=== PATIENT | female | born 1930 | race Caucasian/White ===

== ENCOUNTER → 2016-07-18 | Outpatient (CLI) | payer OTHER, MEDICARE ==
[~2016-07-18] VITALS: Ht 165.1 cm; Wt 86.5 kg
[~2016-07-18] MED LIST: ADULT LOW DOSE81 MG PO; AMITRIPTYLINE H25 M2 PO; AMITRIPTYLINE H25 M4 PO; AMITRIPTYLINE H50 M2 PO; AMITRIPTYLINE H50 M3 PO; CHLORTHALIDONE25 MG PO; DAYPRO600 MG PO; EXCEDRIN CAPLE1 EACH PO; HYDROCODON-ACE1 EAC5 PO; HYDROCODON-ACE1 EACH PO; LASIX 20 MG TAB20 MG PO; LASIX 40 MG TAB40 M2 PO; LEVOTHYROXIN0.112 M1 PO; LISINOPRIL-HCT1 EACH PO; LISINOPRIL10 MG PO; MECLIZINE 25 MG25 M1 PO; METHADONE HCL 110 M1 PO; METHADONE HCL5 MG PO; NEURONTIN600 MG PO; NORTRIPTYLINE H25 M3 PO; OMEPRAZOLE 20 M20 M1 PO; PRINZIDE 20-251 EACH PO; SYNTHROID25 MCG PO; SYNTHROID75 MCG PO; ZOFRAN PO
--- NOTE | ~2016-07-18 | HPC ---
[facility] [place] [address] PAIN MANAGEMENT CONSULTATION Name: VALENTIN MURRAY Room #: REG [facility].#: [id number] Admission: 07/18/16 Attend Phys: Chet Benavides MD Discharge: Date of : 30 Report #: [id number] THIS REPORT FOR: //name// CC: Chet Jeff MD DATE OF SERVICE: 07/18/2016 Followup visit for chronic intractable facial pain and management of high-risk medication. The patient returns to the pain clinic today and she has had an episode of congestive heart failure. This was severe enough to keep her hospitalized at [facility] for several days while she was aggressively diuresed. She is still retaining a fair amount of fluid. She is back in the facility and is hopeful that she can keep her fluid management under control. MEDICATIONS: Chlorthalidone, lisinopril, levothyroxine, Lasix, nortriptyline, methadone 10 mg t.i.d., gabapentin 600 mg at bedtime, aspirin and omeprazole. ALLERGIES: IODINE. PHYSICAL EXAMINATION: GENERAL: She is a pleasant 86-year-old, alert and oriented, without signs of overmedication. VITAL SIGNS: Her blood pressure is 155/74, heart rate 95 and respirations 16. BMI is 31.8. HEART: She has rapidly heart rate with a slight murmur appreciated. EXTREMITIES: Examination of the feet reveals bilateral lower extremity 2+ to 3+ edema, worse on the left. IMPRESSION: 1. 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 2. Recent congestive heart failure episodes. RECOMMENDATIONS: 1. Continue methadone at current doses. 2. Reduce gabapentin at 300 mg daily due to its ability at times to worsen edema. 3. Follow up in the pain clinic in 3 months. By: [id number] Chet Benavides MD /nt
[2016-07-18 13:50] VITALS: BP 155/74
== END ==
LOC: PAIN 06:50
DX: G89.29 Other chronic pain (principal); I50.9 Heart failure, unspecified; I10 Essential (primary) hypertension

== ENCOUNTER → 2016-10-27 | Outpatient (CLI) | payer OTHER, MEDICARE ==
[~2016-10-27] VITALS: Ht 167.6 cm; Wt 86.1 kg
[~2016-10-27] MED LIST changes: +TYLENOL PM EX-1 EACH PO
[2016-10-27 14:35] VITALS: BP 145/70
== END | disposition home or self-care (01) ==
LOC: PAIN 09-15 07:49
DX: G50.1 Atypical facial pain (principal); I50.9 Heart failure, unspecified

== ENCOUNTER → 2017-06-14 | Outpatient (CLI) | payer OTHER, MEDICARE ==
[~2017-06-14] VITALS: Ht 167.6 cm; Wt 82.4 kg
[~2017-06-14] MED LIST changes: +ASPIRIN EC81 M1 PO; +CARAFATE 1 GM TA1 G1 PO; +IRON325 PO; +NORTRIPTYLINE H10 M1 PO; +PROTONIX40 M1 PO; +SENNA8.6 MG PO; +UNICOMPLEX M TA1 TA1 PO
--- NOTE | ~2017-06-14 | HPC ---
[facility] [address] [place] [address] PAIN MANAGEMENT CONSULTATION Name: VALENTIN MURRAY Azul Room #: REG [facility]#: [id number] Admission: 06/14/17 Attend Phys: Chet Benavides MD Discharge: Date of : 30 Report #: [id number] THIS REPORT FOR: //name// CC: Chet Jeff MD DATE OF SERVICE: 06/14/2017 Followup visit for management of chronic osteoarthritic pain and atypical facial pain with trigeminal neuralgia. The patient returns to pain clinic today for renewal of her methadone. She has been using a combination of methadone 10 mg 3 times daily and nortriptyline for 13 years. She was initiated on methadone with her first prescription in 2003 after a failure of Neurontin. She has been grateful for it ever since. It has successfully managed her pain with very few side effects. She has had no misuse or abuse issues. She has had no situations where we have been concerned of overdose. Side effects have been well managed. Today, she scores her pain as a 4-5/10. She has ongoing pain in the left side of her face, in her ear radiating to her gum and some pain into her right leg with radiculopathy. Medications reviewed include chlorthalidone, lisinopril, levothyroxine, methadone 10 mg t.i.d., nortriptyline 25 at bedtime and aspirin. She understands all her medications, would like to consider tapering her nortriptyline. On PQRS review, she has osteoarthritis of the knees bilaterally, right worse than left. She has maintained her weight at 29.3 BMI. Blood pressure is 134/58, heart rate is 100 with respirations 16 and O2 sat of 98. Her pain intensity is 4-5/10. She needs some help standing and walking and uses a walker and would be considered for that basis a fall risk. She is on no blood thinners. She has been treated for hypertension by her primary care physician. She is on an opioid therapy agreement, which was initially signed in the mid 1999s. She is now on her 13 year of methadone use. She is at low risk for misuse, abuse or addiction. Functional assessment tool shows that her functional interference is 50/70, which is a fairly significant level. She does her best to remain active and is growing old in the facility. IMPRESSION: 1. Osteoarthritis, right knee. 2. Management of high risk medications under terms of an opioid agreement. 3. Atypical facial pain and trigeminal neuralgia. [facility] [address] [place] [address] PAIN MANAGEMENT CONSULTATION Name: VALENTIN MURRAY Room #: REG [facility]#: [id number] Admission: 06/14/17 Attend Phys: Chet Benavides MD Discharge: Date of : 30 Report #: [id number] Under terms of our agreement, I have renewed her methadone. She will manage it carefully. I plan to see her back in the pain clinic in 3 months. <ELECTRONICALLY SIGNED> By: Chet Benavides MD 07/24/17 1408 [id number] Chet Benavides MD /nt
[2017-06-14 13:34] VITALS: BP 134/58
== END ==
LOC: PAIN 05-15 07:03
DX: M17.11 Unilateral primary osteoarthritis, right knee (principal); F11.90 Opioid use, unspecified, uncomplicated; G50.0 Trigeminal neuralgia

== ENCOUNTER → 2017-10-11 | Outpatient (CLI) | payer OTHER, MEDICARE ==
[~2017-10-11] VITALS: Ht 167.6 cm; Wt 80.7 kg
--- NOTE | ~2017-10-11 | HPC ---
[facility] [place] [address] PAIN MANAGEMENT CONSULTATION Name: VALENTIN MURRAY [id number] Admission: 10/11/17 Attend Phys: Markos Boyce DO Discharge: Date of : 30 Report #: [id number] THIS REPORT FOR: //name// CC: Markos Jeff MD DATE OF SERVICE: 10/11/2017 CHIEF COMPLAINT: Chronic osteoarthritis, atypical facial pain secondary to trigeminal neuralgia. HISTORY OF PRESENT ILLNESS: As you know, the patient is a very pleasant 87-year-old female who returns today in followup visit requesting refill of her methadone therapy, which she takes 10 mg 3 times a day. She also takes nortriptyline 25 mg dose p.o. at bedtime for neuropathic symptoms. Despite the medications, she continues to experience numbness, aching and shooting, though she is able to place pain score today, no greater than 5/10, which is tolerable for her. She states that bending hands, walking as well as certain temperatures can affect pain. She states pain medications tend to improve symptoms. She has returned requesting refill on medications. ALLERGIES: IODINE, TOPICAL AGENTS. CURRENT MEDICATIONS: Multivitamin, sucralfate, Senokot, pantoprazole, ferrous sulfate, nortriptyline, methadone, aspirin, acetaminophen, chlorthalidone, lisinopril, levothyroxine. SOCIAL HISTORY: The patient denies tobacco, alcohol, IV or illicit drug use. She is retired. She lives in [facility] within the [facility] living [facility] area. She is unaccompanied today. IMAGING: No new imaging available. PQRS: The patient has osteoarthritis of the knees bilaterally and hands. She does not have rheumatoid arthritis. She places pain intensity 5/10. She is not a fall risk, though she does use devices for ambulation including roller walkers. She is not on blood thinners. She is treated for hypertension. She has been on opioids for a much greater than 6 weeks. She is under opioid contract with Dr. Chet Benavides to receive these medications. She is at low risk for opioid abuse. Functional assessment tool indicates pain impact score of 50/70. PHYSICAL EXAMINATION: VITAL SIGNS: Blood pressure 136/56, pulse is 90, respiratory rate 18, [facility] [address] [place] [address] PAIN MANAGEMENT CONSULTATION Name: VALENTIN MURRAY Azul Room #: REG [facility].#: [id number] Admission: 10/11/17 Attend Phys: Markos Boyce DO Discharge: Date of : 30 Report #: [id number] unlabored. The patient is 96% on room air. Height 5 feet 6 inches tall, weight 177.8 pounds, BMI calculated 28.7. GENERAL: Well-developed, well-nourished, well-hydrated 87-year-old female appearing stated age, placing current pain score 5/10. HEENT: Normocephalic, atraumatic. Pupils equal, round, reactive to light. Speech is fluent. MUSCULOSKELETAL: The patient does have some palpatory tenderness over the trigeminal distribution on the right. 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 ASSESSMENT: 1. Bilateral osteoarthritis of the hands. 2. Trigeminal neuralgia. 3. Osteoarthritis of the right knee. 4. Chronic intractable pain. 5. Management of high risk medications under terms of opioid agreement. PLAN: 1. The patient returns today in followup visit to continue medication therapy. Due to scheduling conflicts, the patient was placed on my services to provide refill of medications. The patient states she is doing very well with medication therapy and feels that it is beneficial. She wishes to continue the treatment option. She is taking methadone 3 times a day and has been consistently taking this medication for very long period of time. She denies side effects of somnolence, decrease in mental acuity, disorientation and confusion. She requests a refill on this medication. She is also requesting nortriptyline 25 mg dose 1 tab p.o. at bedtime with a 3-month prescription. 2. The patient was provided a prescription of methadone 10 mg dose 1 tab p.o. t.i.d. The patient was advised that the calculation based on CDC's current opioid equivalent calculated would indicate 240 morphine equivalents a day based on 30 mg dose with a conversion factor of 8, which is based on the CDC's conversion calculator. The patient was advised that 90 morphine equivalents would be the maximum typical for chronic pain, but she is tolerating the medication well. We will refill the medication today for #90 tablets with releases of today, 4 weeks from today, 8 weeks from today, 3 months' worth of medication. She can follow up with Dr. Benavides about adjustments in therapy if necessary. 3. The patient was provided a prescription of nortriptyline 25 mg dose 1 tab p.o. at bedtime. I have given the patient #90 tablets, which is a 3-month prescription. There were refills upon this prescription. 4. The patient returns to see Dr. Benavides in 3 months, adjustments in therapy [address] [address] PAIN MANAGEMENT CONSULTATION Name: VALENTIN MURRAY Room #: REG [facility]#: [id number] Admission: 10/11/17 Attend Phys: Markos Boyce DO Discharge: Date of : 30 Report #: [id number] may be necessary at that time. We will defer to Dr. Benavides for the followup visit. By: [id number] Markos Boyce DO /nt
[2017-10-11 10:47] VITALS: BP 136/56
[2017-10-11 10:49] VITALS: BP 136/56
== END ==
LOC: PAIN 07:09
DX: M17.11 Unilateral primary osteoarthritis, right knee (principal); M19.042 Primary osteoarthritis, left hand; M19.041 Primary osteoarthritis, right hand; G50.0 Trigeminal neuralgia; G89.4 Chronic pain syndrome; Z79.891 Long term (current) use of opiate analgesic

== ENCOUNTER → 2018-01-16 | Outpatient (CLI) | payer OTHER, MEDICARE ==
[~2018-01-16] VITALS: Ht 167.6 cm; Wt 78.9 kg
--- NOTE | ~2018-01-16 | HPC ---
[facility] [address] [address] PAIN MANAGEMENT CONSULTATION Name: VALENTIN MURRAY Azul Room #: REG AUGUST Deric#: [id number] Admission: 01/16/18 Attend Phys: Chet Benavides MD Discharge: Date of : 30 Report #: [id number] THIS REPORT FOR: //name// CC: Chet Jeff MD DATE OF SERVICE: 01/16/2018 REASON FOR CONSULTATION: Followup visit for chronic pain. HISTORY OF PRESENT ILLNESS: This is patient who is now 87-year-old and has been a longstanding patient of mine dating back well over 10 years that is here today for renewal of her methadone. She takes 10 mg three times a day. The CDS guideline calculates this at 90 morphine milligram equivalents. The new calculation for methadone has dropped from 4:1 to 3:1. She denies any significant side effects including constipation. She is doing well. She is able to function at a high level providing for all of her own self-care. 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 She has no cognitive issues. She is grateful for the pain relief that she gets from the medication and believes that the pain control that she has for her atypical facial pain from trigeminal neuralgia is joseph to remaining independent and active. PQRS review shows that she does also have some osteoarthritis. It involves knees and hands. She has a pain intensity of 5. She has not fallen and I would not consider her a fall risk. She takes no blood thinners. She is, however, treated for hypertension and we reviewed all medications. Our opioid agreement is established and we talked about the importance for her safeguarding these medications. She is at low risk for any sort of addiction or opioid abuse. Vital signs showed blood pressure 127/41, heart rate 92, respirations 16, O2 sat 97. She has no facial allodynia at this time. IMPRESSION: 1. Chronic intractable pain with osteoarthritis of the right knee, bilateral osteoarthritis of the hands. 2. Trigeminal neuralgia/atypical facial pain of neuralgic origin. 3. Management of high risk medications under terms of an opioid agreement. PLAN: Followup visit in 3 months. Medications renewed with 4 and 8-week release dates. By: [id number] Chet Benavides MD /nt
[2018-01-16 10:19] VITALS: BP 127/41
== END ==
LOC: PAIN 06:53
DX: G89.4 Chronic pain syndrome (principal); G50.0 Trigeminal neuralgia; Z79.899 Other long term (current) drug therapy

== ENCOUNTER → 2018-04-12 | Outpatient (CLI) | payer OTHER, MEDICARE ==
[~2018-04-12] VITALS: Ht 167.6 cm; Wt 78.1 kg
[2018-04-12 10:12] VITALS: BP 113/56
--- NOTE | 2018-04-12 10:24 | NUR ---
Pain Clinic Assessment: 1. History of Osteoarthritis: knee HANDS History of Rheumatoid Arthritis: Not Applicable 2. Height: 5 ft. 6 in. 167.6 cm. Weight: 172.2 lb. oz. 78.109 kg. Patient's BMI: 27.8 3. Vital Signs: BP: 113/56 Pulse: 86 Resp: 20 Temp: 02 Sat: 97 ECG Mon: 4. Pain Intensity: 7 5. Fall Risk: Dizziness: N Needs help standing or walking: Y Fallen in the last 3 months: N Fall risk comments: 6. Patient on Blood Thinner: None 7. History of Hypertension: Y 8. Opioid Therapy greater than 6 weeks: Y Opiate Contract Signed: 06/14/17 9. Risk Assessment Tool Provided: low risk 10. Functional Assessment Tool: 50/70 11. Recreational Drug Use: Never Drug Type: Tobacco Use: Never Smoker Tobacco Type: Amount or Packs/day: How Many Years: Alcohol Use: No Frequency: Quant:
--- NOTE | 2018-04-18 10:08 | HPC ---
[facility] [address] [place] [address] PAIN MANAGEMENT CONSULTATION Name: TREVORVALENTIN Azul Room #: REG [facility] Leos#: [id number] Admission: 04/12/18 Attend Phys: Gabriela Cloud Discharge: Date of : 30 Report #: [id number] THIS REPORT FOR: //name// CC: Gabriela Thornton Alcgui DATE OF SERVICE: 04/12/2018 CHIEF COMPLAINT: Chronic intractable pain with osteoarthritis and trigeminal neuralgia. HISTORY OF PRESENT ILLNESS: This is a very pleasant 87-year-old who returns to the Pain Clinic today for her medication management that is used to treat her trigeminal neuralgia of her face on the left side and her ongoing osteoarthritis. The patient does complain also of left foot pain today. She tells me she has a bone that has been growing into her instep, makes it very painful to walk, rating her pain today as 7/10. In part, it has increased due to this foot pain. She is contemplating having surgery because she is having such difficulty walking. They are worried about her heart because she does have congestive heart failure and other cardiac issues. So, she is going to go back and talk with doctor again regarding this because she cannot be very active. She denies any constipation. She uses Senokot-S on a daily basis. She does not have any daytime sleepiness. Her meds are very helpful in controlling her pain and would like a refill today. CURRENT ALLERGIES: IODINE. CURRENT LIST OF MEDICATIONS: Methadone 10 mg 3 times a day, multivitamin, Senokot daily, Carafate twice a day, Protonix 40 mg daily, iron 325 mg daily, nortriptyline 25 mg daily, 81 mg aspirin, extra strength Tylenol 1 tablet a day, chlorthalidone 25 mg daily, lisinopril 10 mg daily and Synthroid 112 mcg daily. PQRS: 1. The patient has a history of osteoarthritis in her knees and her hands. Denies rheumatoid arthritis. 2. Height is 5 feet 6 inches, weight is 172, BMI is 27.8. 3. Vital signs: Blood pressure 113/56, pulse is 86, respirations 20, oxygen sat is 97. 4. Pain score 7/10. 5. Fall risk. The patient denies dizziness. Does use a walker today and has not fallen in the last 3 months. 6. The patient denies blood thinners, but takes antihypertensive medications. 7. Opioid therapy is greater than 6 weeks. Therefore, no opioid signed contract is on the chart. 8. Risk assessment tool is low and her functional assessment is 50/70. 9. Recreational drug use, she does not use, does not [place] [address] PAIN MANAGEMENT CONSULTATION Name: VALENTIN MURRAY Room #: REG A[facility] Leos#: [id number] Admission: 04/12/18 Attend Phys: Gabriela Cloud Discharge: Date of : 30 Report #: [id number] alcohol. We have checked the prescription monitoring system. The patient is filling appropriately from Dr. Benavides. The patient tells me she safeguards her medications. We will check a urine screen on the next visit for this patient. PHYSICAL EXAMINATION: GENERAL: This is a well-developed, well hydrated, 87-year-old female that appears younger than her stated age. She is alert and orientated and her affect is appropriate. She lives at [facility], is an independent living. Her niece is here for the visit today in the waiting room. HEENT: Normocephalic, atraumatic. Extraocular eye muscles are intact. Mucous membranes are moist. Left face tenderness from ear to jaw. NECK: Without adenopathy or JVD. MUSCULOSKELETAL: The patient does have 2+ edema in her lower extremity, especially greater on the right than the left. Complains of foot pain, top of the foot, very tender to the touch of her left foot. Bilateral strength judged to be 4/5 in all major muscle groups in her lower extremities. IMPRESSION: 1. Chronic intractable pain with osteoarthritis of her right knee, bilateral osteoarthritis of her hands. 2. Trigeminal neuralgia, atypical facial pain of neuralgic origin. 3. Left foot pain related to atypical bone growth. 4. Management of high risk medications under terms of written opioid agreement. We reviewed the fact that opiate medications are being used to provide analgesia adequate to support activities of daily living, not attempting to achieve a specific pain score on the 0-10 Visual Analog Scale. The current opiate medications are providing sufficient analgesia to allow the patient to participate in activities of daily living. The patient is not exhibiting any aberrant behavior suggestive of drug diversion. The patient is not having any adverse reactions to medications. The patient is not suffering from daytime somnolence or mental acuity changes. The patient is managing opiate-induced constipation with appropriate [id number] agents and dietary considerations. The patient was counseled on concern for caution with operating a motor vehicle while using opiate medications. A physical exam was performed and the patient's functional status was evaluated. All patients with back pain were advised against the bed rest greater than 4 days and were advised to return to normal activities. Pain score assessment was noted and the treatment plan was reviewed with the patient. All current medications, both prescribed and OTC were reviewed and reconciled on the electronic medical record. Tobacco screening was accomplished and smoking cessation was advised when indicated. BMI was noted and diet/exercise modification was recommended for all patients following outside normal parameters. [facility] [address] [place] [address] PAIN MANAGEMENT CONSULTATION Name: VALENTIN MURRAY Azul Room #: REG CLI [facility]#: [id number] Admission: 04/12/18 Attend Phys: Gabriela Cloud Discharge: Date of : 30 Report #: [id number] I reviewed with the patient today their responsibilities to safeguard prescription medications, reviewed their responsibility to utilize medications only as prescribed by the physician. They are to seek and receive pain medications only from 1 physician group ( [facility]). They are to use 1 pharmacy and keep the clinic informed if they change pharmacies. Their responsibilities include making followup visits in a timely fashion and to avoid abrupt discontinuation of medication usage. Their responsibilities further include bringing their medications (bottles from the pharmacy with residual pills) to the visit for possible confirmation of pill counts and the patient understands it is their responsibility to submit to random drug screens to ensure both that the medications prescribed are present, and that no other controlled substances are present. All prescriptions provided today were generated electronically. PLAN: 1. We discussed treatment options with the patient today. She continues on her methadone 10 mg 3 times a day and would like a refill of this medicine since it is very helpful in controlling her pain. Scripts given for #90 today for an 8-week release. 2. We discussed nortriptyline. Per the discussion last visit, she thought about decreasing that and weaning off. The patient attempted to do that, but feels like she needs to continue on that at bedtime. No scripts needed for her nortriptyline 25 mg today since she has plenty of refills of that medication. 3. The patient will return in followup in 3 months' time. At that time, we will check a drug screen on the patient. The patient seen in collaboration today with Dr. Chet Benavides. <ELECTRONICALLY SIGNED> By: Gabriela Cloud 04/18/18 1008 [id number] Gabriela Cloud /nt
== END ==
LOC: PAIN 07:39
DX: G89.4 Chronic pain syndrome (principal); M17.11 Unilateral primary osteoarthritis, right knee; M19.042 Primary osteoarthritis, left hand; M19.041 Primary osteoarthritis, right hand; G50.0 Trigeminal neuralgia; G50.1 Atypical facial pain; M79.672 Pain in left foot; Z79.891 Long term (current) use of opiate analgesic

== ENCOUNTER → 2018-08-02 | Outpatient (CLI) | payer OTHER, MEDICARE ==
[~2018-08-02] VITALS: Ht 167.6 cm; Wt 78.8 kg
[2018-08-02 12:34] VITALS: BP 152/64
--- NOTE | 2018-08-02 12:40 | NUR ---
Pain Clinic Assessment: 1. History of Osteoarthritis: knee HANDS History of Rheumatoid Arthritis: Not Applicable 2. Height: 5 ft. 6 in. 167.6 cm. Weight: 173.8 lb. oz. 78.835 kg. Patient's BMI: 28.1 3. Vital Signs: BP: 152/64 Pulse: 99 Resp: 16 Temp: 02 Sat: 96 ECG Mon: 4. Pain Intensity: 3 5. Fall Risk: Dizziness: N Needs help standing or walking: Y Fallen in the last 3 months: N Fall risk comments: 6. Patient on Blood Thinner: None 7. History of Hypertension: Y 8. Opioid Therapy greater than 6 weeks: Y Opiate Contract Signed: 06/14/17 9. Risk Assessment Tool Provided: low risk 10. Functional Assessment Tool: 50/70 11. Recreational Drug Use: Never Drug Type: Tobacco Use: Never Smoker Tobacco Type: Amount or Packs/day: How Many Years: Alcohol Use: No Frequency: Quant:
--- NOTE | 2018-08-06 07:45 | HPC ---
[facility] [place] [address] PAIN MANAGEMENT CONSULTATION Name: VALENTIN MURRAY Azul Room #: REG [facility] [id number] Admission: 08/02/18 ������������������ Attend Phys: Gabriela Cloud Discharge: ������������������ Date of : 30 Report #: [id number] THIS REPORT FOR: //name// CC: Gabriela Thornton Alcgui DATE OF SERVICE: 08/02/2018 CHIEF COMPLAINT: Chronic intractable pain with osteoarthritis and trigeminal neuralgia. HISTORY OF PRESENT ILLNESS: This is a very pleasant 88-year-old female who returns to the pain clinic today for refill of her medications. She uses this medicine to treat her trigeminal neuralgia on the left side of her face and her ongoing osteoarthritis. She tells me that her pain score today is 3/10. The medicines are controlling her pain well and would like refills. She describes her pain as numbness, achy feeling in the left side of her face that radiates from her ear into her gum, as well as her right knee, which she uses Voltaren gel for. The patient tells me she was hospitalized twice since we last saw her, once for a bone spur and once for another cardiac event that I am unclear of what she had done, she was only in the hospital a few days for each episode and seems to be recovered fully. ALLERGIES: IODINE. CURRENT LIST OF MEDICATIONS: Methadone 10 mg 3 times a day, multivitamin, Senokot, Carafate b.i.d., Protonix 40 mg daily, iron 325 daily, nortriptyline 25 mg capsules at bedtime, aspirin 81 mg, Tylenol PM, chlorthalidone 25 mg daily, lisinopril 10 mg daily, Synthroid 112 mcg daily. PQRS: 1. She has a history of osteoarthritis in her knees and her hands. She denies any rheumatoid arthritis. Her height is 5 feet 6 inches, her weight is 173. Her BMI is 28. 2. Vital signs: Blood pressure 152/64, pulse is 99, respirations 16, oxygen sat is 96. 3. Pain score is 3/10. 4. The patient denies dizziness, uses a walker for walking, has not fallen in the last 3 months. 5. The patient is not on any blood thinners. She does take medicine for hypertension. 6. Opiate therapy is greater than 6 weeks, therefore, an opioid signed contract is on the chart. Her risk assessment tool is low. Her functional assessment is 50-70. 7. Recreational drug use, she denies. She is not a smoker and does not drink alcohol. [address] [address] PAIN MANAGEMENT CONSULTATION Name: VALENTIN MURRAY Room #: REG [facility] Deric#: [id number] Admission: 08/02/18 ������������������ Attend Phys: Gabriela Cloud Discharge: ������������������ Date of : 30 Report #: [id number] We did check the prescription monitoring system. The patient is filling appropriately for her medications and is due for her medications today. The patient tells me that she does safeguard her medicines at all times. We will also collect a random drug screen on this patient today since I do not see one on the chart. PHYSICAL EXAMINATION: GENERAL: This is a well-developed, well hydrated 88-year-old female who appears her stated age. She is alert and orientated. She lives at [facility]. Places her pain score at 3/10 today. HEENT: Normocephalic, atraumatic. Mucous membranes are moist. EXTREMITIES: She has left face tenderness from her jaw to her gums. MUSCULOSKELETAL: The patient is able to move from sitting to standing using her walker in the arm chair. She does have lower extremity strength judged to be 4/5 bilaterally and symmetrical. She does walk with a slightly antalgic gait. IMPRESSION: 1. Chronic intractable pain with osteoarthritis of the right knee and hands bilaterally. 2. Trigeminal neuralgia, atypical face pain of neurologic origin. 3. Left foot pain related to a bone growth, recent surgery to remove this bone spur. 4. Management of high-risk medications under terms of written opioid agreement. We reviewed the fact that opiate medications are being used to provide analgesia adequate to support activities of daily living, not attempting to achieve a specific pain score on the 0-10 Visual Analog Scale. The current opiate medications are providing sufficient analgesia to allow the patient to participate in activities of daily living. The patient is not exhibiting any aberrant behavior suggestive of drug diversion. The patient is not having any adverse reactions to medications. The patient is not suffering from daytime somnolence or mental acuity changes. The patient is managing opiate-induced constipation with appropriate ybnv-fhw-rbuozcb agents and dietary considerations. The patient was counseled on concern for caution with operating a motor vehicle while using opiate medications. A physical exam was performed and the patient's functional status was evaluated. All patients with back pain were advised against the bed rest greater than 4 days and were advised to return to normal activities. Pain score assessment was noted and the treatment plan was reviewed with the patient. All current medications, both prescribed and OTC were reviewed and reconciled on the electronic medical record. Tobacco screening was accomplished and smoking cessation was advised when indicated. BMI was noted and diet/exercise modification was recommended for all patients following outside normal parameters. [address] [address] PAIN MANAGEMENT CONSULTATION Name: VALENTIN MURRAY Room #: [facility]#: [id number] Admission: 08/02/18 ������������������ Attend Phys: Gabriela Cloud Discharge: ������������������ Date of : 30 Report #: [id number] I reviewed with the patient today their responsibilities to safeguard prescription medications, reviewed their responsibility to utilize medications only as prescribed by the physician. They are to seek and receive pain medications only from 1 physician group ( [facility]). They are to use 1 pharmacy and keep the clinic informed if they change pharmacies. Their responsibilities include making followup visits in a timely fashion and to avoid abrupt discontinuation of medication usage. Their responsibilities further include bringing their medications (bottles from the pharmacy with residual pills) to the visit for possible confirmation of pill counts and the patient understands it is their responsibility to submit to random drug screens to ensure both that the medications prescribed are present, and that no other controlled substances are present. All prescriptions provided today were generated electronically. PLAN: 1. We discussed treatment options with the patient today. The patient is doing well on her current medication regimen of methadone 10 mg 3 times a day. This places her according to the CDC guidelines at 90 morphine mEq per day and has been stable on this medicine for quite some time. She denies any problems with constipation that is not controlled with zutd-pcq-zmfjnyp laxatives. She does not have any daytime sleepiness and does not appear overmedicated. Therefore, we will refill this medication today for #90 tablets for today, 4-week and 8-week releases. 2. Nortriptyline 25 mg 1 p.o. at bedtime, #90 with 3 additional refills. The patient has been stable on this medication also for some time for a refill was given of this medicine. 3. We will collect an oral drug test to check for the patient's current drug use, there has not been one on the chart. This will be her first drug screen. 4. The patient did see Dr. Benavides today who also is collaborating care. She will follow up with us in 3 months' time. ��������������������������������������������� <ELECTRONICALLY SIGNED> ���������������������������������������� By: Gabriela Cloud ��������������������������������������������� 08/06/18 0745 [id number] Gabriela Cloud /brooks
== END ==
LOC: PAIN 06:49
DX: M17.11 Unilateral primary osteoarthritis, right knee (principal); M19.042 Primary osteoarthritis, left hand; M19.041 Primary osteoarthritis, right hand; G50.0 Trigeminal neuralgia; G89.4 Chronic pain syndrome; G50.1 Atypical facial pain; M79.672 Pain in left foot; Z79.891 Long term (current) use of opiate analgesic; Z79.899 Other long term (current) drug therapy

== ENCOUNTER → 2018-10-29 | Outpatient (CLI) | payer OTHER, MEDICARE ==
[~2018-10-29] VITALS: Ht 167.6 cm; Wt 82.7 kg
[~2018-10-29] MED LIST changes: +MEDROLDOSEPACK PO
[2018-10-29 13:15] VITALS: BP 186/80
--- NOTE | 2018-10-29 13:28 | NUR ---
Pain Clinic Assessment: 1. History of Osteoarthritis: knee HANDS History of Rheumatoid Arthritis: Not Applicable 2. Height: 5 ft. 6 in. 167.6 cm. Weight: 182.4 lb. oz. 82.736 kg. Patient's BMI: 29.5 3. Vital Signs: BP: 186/80 Pulse: 83 Resp: 20 Temp: 02 Sat: 98 ECG Mon: 4. Pain Intensity: 10 5. Fall Risk: Dizziness: N Needs help standing or walking: Y Fallen in the last 3 months: N Fall risk comments: 6. Patient on Blood Thinner: None 7. History of Hypertension: Y 8. Opioid Therapy greater than 6 weeks: Y Opiate Contract Signed: 06/14/17 9. Risk Assessment Tool Provided: low risk 10. Functional Assessment Tool: 50/70 11. Recreational Drug Use: Never Drug Type: Tobacco Use: Never Smoker Tobacco Type: Amount or Packs/day: How Many Years: Alcohol Use: No Frequency: Quant:
--- NOTE | 2018-10-30 15:23 | HPC ---
[facility] [address] [place] [address] PAIN MANAGEMENT CONSULTATION Name: VALENTIN MURRAY Azul Room #: REG [facility] Deric#: [id number] Admission: 10/29/18 ������������������ Attend Phys: Gabriela Cloud Discharge: ������������������ Date of : 30 Report #: [id number] THIS REPORT FOR: //name// CC: Gabriela Jeff MD DATE OF SERVICE: 10/29/2018 CHIEF COMPLAINT: Chronic intractable pain with osteoarthritis and trigeminal neuralgia. HISTORY OF PRESENT ILLNESS: This is a very pleasant 88-year-old female who returns to the pain clinic today for refill of her medications that she uses to treat her trigeminal neuralgia on the left side of her face as well as her ongoing arthritis. The patient presents today with a painful middle finger on her left hand and it is red and hot to the touch and throbbing. The patient tells me her pain score in her finger today is 10/10. Otherwise, her facial pain is 5/10. She tells me that her finger started hurting on Monday and she has been thinking about going to the Emergency Room but wanted for us to look at it first. The patient tells me that her normal facial pain is a numbness, achy pain that is relieved with some of her medication. She denies any problems with constipation since she does take Senokot-S on a daily basis. She feels that she is not overmedicated with her current pain regimen. ALLERGIES: IODINE. CURRENT LIST OF MEDICATIONS: Nortriptyline 25 mg at bedtime, methadone 10 mg 3 times a day, multivitamin, Senokot-S, Carafate, Protonix, iron, aspirin, Tylenol Extra Strength, chlorthalidone, Zestril and Synthroid. PQRS: 1. She has a history of osteoarthritis in her knees and hands. Denies any rheumatoid arthritis. 2. Height is 5 feet 6 inches, weight is 182 and BMI is 29. 3. Vital signs: Blood pressure 186/80, pulse is 83, respirations 20 and oxygen sat is 98. 4. Pain score is 10/10 in her hand and 5/10 in her face. 5. Fall risk. Denies dizziness. Does use a walker for walking and standing for balance and she has not fallen in the last 3 months. 6. The patient is not on any blood thinners. She does take medicine for hypertension. 7. Opiate therapy is greater than 6 weeks; therefore, an opiate signed contract is on the chart. Her risk assessment tool is low. Functional assessment is 50/70. [place] [address] PAIN MANAGEMENT CONSULTATION Name: VALENTIN MURRAY Room #: REG [facility] Deric#: [id number] Admission: 10/29/18 ������������������ Attend Phys: Gabriela Cloud Discharge: ������������������ Date of : 30 Report #: [id number] 8. Recreational drug use, she denies. She is not a smoker and does not drink alcohol. We did check the prescription monitoring system, the patient is filling appropriately for her medications and is due for those this week. We did check a random drug screen at last visit and the results were appropriate for the medications she is taking. She tells me she does safeguard her medications. PHYSICAL EXAMINATION: GENERAL: This is a well-developed, well-hydrated 88-year-old female who appears her stated age. She is alert and orientated. Placing her pain in her face today at 5/10 and 10/10 in her finger. HEENT: Normocephalic and atraumatic. Pupils equal, round and reactive to light. Mucous membranes are moist. Her left side of her face, she does complain of tenderness from her jaw to her gums. EXTREMITIES: She has a left middle finger Heberden nodule on her left hand. It is reddened and warm to the touch, very painful for the patient radiating down into her hand. MUSCULOSKELETAL: The patient is able to move from sitting to standing using her walker and the arm rests. She does have lower extremity strength judged to be 4/5 bilaterally and it is symmetrical. She walks with a slightly antalgic gait. IMPRESSION: 1. Chronic intractable pain with osteoarthritis of her knees and hands bilaterally. 2. Painful Heberden nodule on her left hand middle finger. 3. Trigeminal neuralgia, atypical facial pain and neurologic origin. 4. Management of high risk medication under terms of written opioid agreement. We reviewed the fact that opiate medications are being used to provide analgesia adequate to support activities of daily living, not attempting to achieve a specific pain score on the 0-10 Visual Analog Scale. The current opiate medications are providing sufficient analgesia to allow the patient to participate in activities of daily living. The patient is not exhibiting any aberrant behavior suggestive of drug diversion. The patient is not having any adverse reactions to medications. The patient is not suffering from daytime somnolence or mental acuity changes. The patient is managing opiate-induced constipation with appropriate oimc-qty-crymmrm agents and dietary considerations. The patient was counseled on concern for caution with operating a motor vehicle while using opiate medications. A physical exam was performed and the patient's functional status was evaluated. All patients with back pain were advised against the bed rest greater than 4 days and were advised to return to normal activities. Pain score assessment was noted and the treatment plan was reviewed with the patient. All current medications, both prescribed and OTC were reviewed and reconciled on the [facility] [address] [place] [address] PAIN MANAGEMENT CONSULTATION Name: VALENTIN MURRAY Azul Room #: REG [facility].#: [id number] Admission: 10/29/18 ������������������ Attend Phys: Gabriela Cloud Discharge: ������������������ Date of : 30 Report #: [id number] electronic medical record. Tobacco screening was accomplished and smoking cessation was advised when indicated. BMI was noted and diet/exercise modification was recommended for all patients following outside normal parameters. I reviewed with the patient today their responsibilities to safeguard prescription medications, reviewed their responsibility to utilize medications only as prescribed by the physician. They are to seek and receive pain medications only from 1 physician group ( [facility]). They are to use 1 pharmacy and keep the clinic informed if they change pharmacies. Their responsibilities include making followup visits in a timely fashion and to avoid abrupt discontinuation of medication usage. Their responsibilities further include bringing their medications (bottles from the pharmacy with residual pills) to the visit for possible confirmation of pill counts and the patient understands it is their responsibility to submit to random drug screens to ensure both that the medications prescribed are present, and that no other controlled substances are present. All prescriptions provided today were generated electronically. PLAN: 1. We discussed treatment options with the patient today. I did have Dr. Benavides examine her left hand as well. Determined to be a Heberden nodule that we will treat with a Medrol Dosepak. The patient instructed to take it as directed. If this does not relieve some of the discomfort, she will need to be refer her to a vice president quality improvement. 2. Scripts given for methadone 10 mg, #90 for release today, 4 and 8-week release. This places the patient at 90 morphine milliequivalents, which is right at the CDC guidelines for medications. 3. The patient does not need nortriptyline. She does have plenty refills of that from previously as she gets 3-month supplies. 4. The patient is seen with Dr. Chet Benavides who collaborated care. She will return in 3 months' time. ��������������������������������������������� <ELECTRONICALLY SIGNED> ���������������������������������������� By: Gabriela Cloud ��������������������������������������������� 10/30/18 1523 [id number] Gabriela Cloud /nt
== END ==
LOC: PAIN 10:46
DX: M17.0 Bilateral primary osteoarthritis of knee (principal); M19.042 Primary osteoarthritis, left hand; M19.041 Primary osteoarthritis, right hand; G89.4 Chronic pain syndrome; G50.0 Trigeminal neuralgia; Z79.891 Long term (current) use of opiate analgesic

== ENCOUNTER → 2019-03-28 | Outpatient (CLI) | payer OTHER, MEDICARE ==
[~2019-03-28] VITALS: Ht 167.6 cm; Wt 78.8 kg
[~2019-03-28] MED LIST changes: +MIRALAX119 GM PO; +NEURONTIN 300M300 M2 PO
[2019-03-28 11:20] VITALS: BP 160/75
--- NOTE | 2019-03-28 11:28 | NUR ---
Pain Clinic Assessment: 1. History of Osteoarthritis: knee HANDS History of Rheumatoid Arthritis: Not Applicable 2. Height: 5 ft. 6 in. 167.6 cm. Weight: 173.8 lb. oz. 78.835 kg. Patient's BMI: 28.1 3. Vital Signs: BP: 160/75 Pulse: 105 Resp: 18 Temp: 02 Sat: 95 ECG Mon: 4. Pain Intensity: 5 5. Fall Risk: Dizziness: N Needs help standing or walking: N Fallen in the last 3 months: Y Fall risk comments: WALKS WITH WALKER 6. Patient on Blood Thinner: None 7. History of Hypertension: Y 8. Opioid Therapy greater than 6 weeks: Y Opiate Contract Signed: 06/14/17 9. Risk Assessment Tool Provided: low risk 10. Functional Assessment Tool: 50/ 11. Recreational Drug Use: Never Drug Type: Tobacco Use: Never Smoker Tobacco Type: Amount or Packs/day: How Many Years: Alcohol Use: No Frequency: Quant:
--- NOTE | 2019-04-01 08:42 | HPC ---
[facility] [address] [place] [address] PAIN MANAGEMENT CONSULTATION Name: VALENTIN MURRAY Azul Room #: REG [facility]ley[facility]wen#: [id number] Admission: 03/28/19 Attend Phys: Gabriela Cloud Discharge: Date of : 30 Report #: [id number] THIS REPORT FOR: //name// CC: Gabriela Jeff MD DATE OF SERVICE: 03/28/2019 CHIEF COMPLAINT: Chronic intractable pain with osteoarthritis and trigeminal neuralgia. HISTORY OF PRESENT ILLNESS: This is a very pleasant 88-year-old female who returns to the pain clinic today for refill of her medications. She reports that she is doing fairly well, rating her pain at 5/10. Her most pressing matter today is to report that she had had a hiatal hernia repair and she was having significant nausea, vomiting and GI issues. She did have this repaired about a month ago, is still recovering and she does have pain in her upper abdomen. She continues also to have left facial pain from her trigeminal neuralgia as well as bilateral leg and foot pain. This is a numbness, achy feeling that is worse when she is walking and standing. Her face pain is increased with eating and weather changes. She does feel that the methadone is beneficial in controlling her pain, though she is reporting her legs have also been problematic and wondering if there are any medications, we may try. ALLERGIES: IODINE. CURRENT LIST OF MEDICATIONS: MiraLax, methadone, multivitamin, Senokot, Carafate, Protonix, iron, aspirin, chlorthalidone, Zestril and Synthroid. PQRS: 1. She has a history of arthritic changes in her knees and hands. Denies any rheumatoid arthritis. 2. Height is 5 feet 6 inches, weight is 173. BMI is 28. 3. Vital signs; 160/75, pulse is 105, respirations 18, oxygen sat is 95%. 4. Pain score is 5/10. 5. Denies dizziness. Does use a walker and has fallen in the last 3 months and did seek medical attention. 6. The patient is not on any blood thinners, but does take medicines for hypertension. 7. Opiate therapy is greater than 6 weeks; therefore, an opioid signed contract is on the chart. Risk assessment is low. Functional assessment is 50/70. 8. Recreational drug use, she denies. She is not a smoker and does not drink alcohol. [address] [address] PAIN MANAGEMENT CONSULTATION Name: VALENTIN MURRAY [id number] Admission: 03/28/19 Attend Phys: Gabriela Cloud Discharge: Date of : 30 Report #: [id number] According to the prescription monitoring system, the patient is filling appropriately for her medications in a timely fashion. She did have one fill in February from the rehab facility post-surgery. There is a recent drug screen on the chart that is appropriate as well. Her current morphine mEq per day is 90 according to the CDC guidelines. PHYSICAL EXAMINATION: GENERAL: This is a well-developed, well-hydrated 88-year-old female who appears her stated age, placing her current pain score today at 5/10. HEENT: Normocephalic, atraumatic. Extraocular eye muscles are intact. Mucous membranes are moist. Tenderness on her left side of her face that radiates to her jaw and in her gumline. MUSCULOSKELETAL: The patient is able to move from sitting to standing using her walker. Her lower extremity strength judged to be 4/5 bilaterally and they is deconditioned. Does complain of numbness and tingling in her legs and feet. She walks with an antalgic gait. ABDOMEN: Does have several well-healed incisional areas from recent hiatal hernia surgery and has tenderness in her upper quadrants. IMPRESSION: 1. Chronic intractable pain with osteoarthritis involving her knees and hands. 2. Trigeminal neuralgia, atypical facial pain. 3. Management of high risk medications under terms of written opioid agreement. 4. Lower extremity neuropathy. We reviewed the fact that opiate medications are being used to provide analgesia adequate to support activities of daily living, not attempting to achieve a specific pain score on the 0-10 Visual Analog Scale. The current opiate medications are providing sufficient analgesia to allow the patient to participate in activities of daily living. The patient is not exhibiting any aberrant behavior suggestive of drug diversion. The patient is not having any adverse reactions to medications. The patient is not suffering from daytime somnolence or mental acuity changes. The patient is managing opiate-induced constipation with appropriate obdn-vjj-szatatw agents and dietary considerations. The patient was counseled on concern for caution with operating a motor vehicle while using opiate medications. PLAN: 1. We discussed treatment options with the patient today. The patient does report she has been having some constipation though she does take a full dose of MiraLax. She does have diarrhea. We encouraged her to take half of a capsule instead of the full dose or to decrease her use to every other day and see if this is beneficial in controlling some of her issues. 2. The patient is a need of refill of her methadone that she takes for her trigeminal neuralgia. We will have Dr. Benavides send a prescription for her methadone 10 mg, #90, for today for an 8-week release. [address] [address] PAIN MANAGEMENT CONSULTATION Name: VALENTIN MURRAY Room #: [facility]#: [id number] Admission: 03/28/19 Attend Phys: Gabriela Cloud Discharge: Date of : 30 Report #: [id number] 3. We discussed her neuropathy in her lower extremities. The patient had been on gabapentin in the past. She does suffer from congestive heart failure and did have some swelling in her extremities. She is unsure if the gabapentin caused any of this. She is uncertain why she had stopped this greater than 2 years ago. We have elected to restart this at a low dose of 300 mg at bedtime. The patient is instructed to try this dose for 2 weeks. If she does not notice any additional swelling in her lower extremities, she may increase this medicine to twice a day, but if she finds benefit from one at bedtime then she is to remain at that current dose. The patient verbalizes understanding of these instructions. 4. The patient will return to our office in 3 months for medication management. The patient is seen today in collaboration with Dr. Chet Benavides. <ELECTRONICALLY SIGNED> By: Gabriela Cloud 04/01/19 0842 [id number] Gabriela Cloud /brooks
== END ==
LOC: PAIN 02-04 06:53
DX: G89.4 Chronic pain syndrome (principal); M17.0 Bilateral primary osteoarthritis of knee; M19.042 Primary osteoarthritis, left hand; M19.041 Primary osteoarthritis, right hand; G50.0 Trigeminal neuralgia; Z79.891 Long term (current) use of opiate analgesic; Z79.82 Long term (current) use of aspirin; Z79.899 Other long term (current) drug therapy; Z88.8 Allergy status to other drugs, medicaments and biological substances